=== PATIENT | female | born 1955 | race Caucasian/White ===

== ENCOUNTER 2018-12-30 07:05 | Observation (INO) ==
[2018-12-30 07:21] VITALS: BMI 30.2
[2018-12-30 07:31] LABS: BASOPHILS # (AUTO) 0.1 X10^3/uL (0.0-0.1); BASOPHILS % (AUTO) 1.2 % (0.2-1.0); EOSINOPHILS # (AUTO) 0.8 x10^3/uL (0.0-0.2); EOSINOPHILS % (AUTO) 10.2 % (0.9-2.9); HEMATOCRIT 43.4 % (36.0-47.0); HEMOGLOBIN 14.7 g/dL (12.0-16.0); LYMPHOCYTES # (AUTO) 1.8 X10^3/uL (1.3-2.9); LYMPHOCYTES % (AUTO) 24.5 % (21.0-51.0); MEAN CORPUSCULAR HEMOGLOBIN 30.3 pg (27.0-34.0); MEAN PLATELET VOLUME 9.6 fL (7.4-11.0); MONOCYTES # (AUTO) 0.5 x10^3/uL (0.3-0.8); MONOCYTES % (AUTO) 7.4 % (0.0-13.0); NEUTROPHILS # (AUTO) 4.2 x10^3/uL (2.2-4.8); NEUTROPHILS % (AUTO) 56.7 % (42.0-75.0); RED BLOOD COUNT 4.87 X10^6/uL (3.5-5.4); RED CELL DISTRIBUTION WIDTH 13.6 % (11.6-16.5)
[2018-12-30] MEDS ORDERED: DECADRON INJ ONE (07:32)
[2018-12-30] MEDS ORDERED: TORADOL 60 MG VIAL ONE (07:32)
[2018-12-30] MEDS ORDERED: XYLOCAINE 1 % (PLAIN) ONE (07:32)
[2018-12-30] MEDS ORDERED: ROCEPHIN VIAL 1 GRAM ONE (07:33)
[2018-12-30 07:35] LABS: PLATELET COUNT 144 X10^3/uL (150.0-450.0); WHITE BLOOD COUNT 7.2 X10^3/uL (3.6-10.0)
--- NOTE | 2018-12-30 07:42 | CT ---
History: Altered mental status Study: CT brain without contrast. Sagittal and coronal reformations were provided. Comparison: None Findings: The ventricles and sulci are of normal size and configuration for patient age without mass effect. There is no intracranial hemorrhage or mass or edema. There is an old right temporal parietal craniotomy with artifact from surgical clips inside the parietal bone. There is no subdural collection of fluid. The paranasal sinuses and mastoid sinuses are clear. Impression: No evidence for acute intracranial disease Reported By:
[2018-12-30 07:47] LABS: BLOOD UREA NITROGEN 18 mg/dL (7-18); CALCIUM 9.6 mg/dL (8.5-10.1); CARBON DIOXIDE 26.3 mmol/L (21-32); CHLORIDE 102 mmol/L (98-107); COR NA(FOR HYPERGLY) 139 mmol/L (136-145); CREATININE 0.85 mg/dL (0.55-1.02); SODIUM 138 mmol/L (136-145); TROPONIN I < 0.02 ng/mL (0-1.5); eGFR NON BLACK RACES > 60 (>60)
[2018-12-30 07:50] LABS: PLATELET MORPHOLOGY COMMENT NORMAL (NORMAL)
[2018-12-30 07:51] LABS: ALANINE AMINOTRANSFERASE 33 Units/L (12-78); ALBUMIN 3.7 g/dL (3.4-5.0); ALKALINE PHOSPHATASE 72 Units/L (46-116); ASPARTATE AMINO TRANSFERASE 22 Units/L (15-37); CKMB % 1.2 % (<4); CREATINE KINASE 96 Units/L (26-192); CREATINE KINASE MB 1.1 ng/mL (0-4.0); TOTAL PROTEIN 7.2 g/dL (6.4-8.2)
--- NOTE | 2018-12-30 07:56 | DR.AMS ---
HPI Time Seen Time Seen by Provider: 12/30/18 07:46 PCP Primary Care Physician: MIGUEL HPI Comment HPI Comment: PATIENT IS 63YR OLD WHITE FEMALE WOKE THIS AM AND GOT READY FOR WORK. SHE WENT TO HER DAUGHTERS HOUSE. SHE ALWAYS GO TO HER DAUGHTERS PLACE AND SEE HER BEFORE COMING TO WORK.THE DUTER OBSERVE HER MOTHER TO BE SLOW AND SLEEPY. IT WAS GETTING DIFFICULT TO KEEP HER UP. BY THE TIME SHE CAME TO ED, SHE WAS SLEEPY BUT AROUSABLE. NO FEVER. PATIENT HAVE NO. Complaint Cheif Complaint Doctors Comments: AMS. Chief Complaint:: DAUGHTER BRINGS PT. IN STATING HER MOTHER IS NOT ACTING RIGHT. SHE SAYS PT. STOPPED BY HER HOUSE THIS MORNING JUST PRIOR TO ARRIVAL AND WAS "IN SLOW MOTION." PT. ACTS VERY DROWSY AND IS SLOW TO RESPOND TO QUESTIONS AND COMMANDS BUT DOES SO APPROPIATELY. PT. DENIES PAIN. Source History Provided: Patient and Family Member Mode of Arrival Mode of Arrival: Ambulatory Timing Onset of Chief Complaint: 12/30/18 PMH PMH Past Medical History: No Past Surgical History: No Surgical History: No History Family History History of Family Medical Conditions: Yes Family Medical History: Hypertension Social History Does patient currently use any type of tobacco product: No Have you used tobacco products in the last 12 months: No Type of Tobacco Use: None Does any household member use tobacco: No Alcohol Use: None Do you use any recreational Drugs:: No Lives With: Family Lives Where: Home infectious screening In the last 2 months have you had wt loss of >10#?: NO Have you had fever, night sweats or hemotysis?: No Have you traveled outside the country in the last 6 months?: No Isolation: Standard ROS Review of Systems Constitutional: No Symptoms Reported and See HPI; negative Chills, Fever, Weakness and Fatigue Eyes: No Symptoms Reported and See HPI; negative Blurred Vision, Photophobia and Diplopia ENTM: No Symptoms Reported and See HPI; negative Ear Pain, Nose Discharge, Nose Congestion and Throat Pain Respiratoy: No Symptoms Reported and See HPI; negative Short of Breath and Wheezing Cardiovascular: No Symptoms Reported and See HPI Gastrointestinal/Abdominal: No Symptoms Reported and See HPI; negative Abdominal Pain, Constipation, Diarrhea and Nausea Genitourinary: No Symptoms Reported and See HPI; negative Dysuria, Frequency and Hematuria Neurological: No Symptoms Reported, See HPI and Headache; negative Weakness and Dizziness Musculoskeletal: No Symptoms Reported and See HPI; negative Back Pain Integumentary: No Symptoms Reported, See HPI and Rash; negative Change in Color, Dryness and Bruises Hematologic/Lymphatic: No Symptoms Reported and See HPI; negative Swollen Glands and Lymphadenopathy Endocrine: No Symptoms Reported and See HPI; negative Increased Thirst and Increased Urine Psychiatric: No Symptoms Reported and See HPI All Other Systems: Reviewed and Negative PE Vitals Vital Signs: Temp Pulse Pulse Resp BP BP Pulse Ox 12/30/18 08:00 80 22 139/65 97 12/30/18 07:32 86 17 144/70 98 12/30/18 07:18 98.1 F 85 17 143/61 98 General Limitations: Altered Mental Status General Appearance: In No Apparent Distress and Other (SLEEPY BUT AROUSABLE.) Head Head Exam: Normal Inspection, Atraumatic and Normocephalic Head Exam Physical: Other (ONE REPORTED.) Eyes Eye exam: Normal Appearance, PERRL, EOMI and Other (PTOSIS LEFT EYE.); negative Scleral Icterus and Conjunctival Injection Pupils: Regular, Round: Bilateral and Reactive: Bilateral ENT ENT Exam: Normal Oropharynx, Normal External Ear Exam, Mucous Membranes Moist and TM's Normal Bilaterally External Ear Exam: Normal External Inspection; negative Mastoid Tenderness, Pain with Movement and External Tenderness TM/Canal Exam: Bilateral: Normal Nose Exam: Normal Nose Exam; negative Sinus Tenderness, Nasal Deviation and Septal Hematoma Mouth Exam: Normal Inspection; negative Drooling, Trismus, Lip Swelling and Tongue Swelling Throat Exam: negative Tonsillar Erythema, Tonsillomegaly and Tonsillar Exudate Neck Neck Exam: Normal Inspection and Trachea Midline; negative Tenderness, Meningismus and Lymphadenopathy Chest Chest Inspection: Normal Inspection, Symmetric Chest Wall Rise and Tenderness Respiratory Respiratory Exam: Normal Lung Sounds Bilat; negative Accessory Muscle Use, Chest Wall Tenderness and Respiratory Distress Respiratory Exam: Bilateral: Clear to Auscultation Cardiovascular Cardiovascular Exam: Regular Rate, Normal Rhythm and Normal Heart Sounds; negative Systolic Murmur, Diastolic Murmur, Gallop and JVD Abdominal Exam Abdominal Exam: Normal Inspection, Normal Bowel Sounds and Soft; negative Tenderness, Organomegaly and Mass Extremities Extremities Exam: Normal Inspection and Normal Capillary Refill; negative Tenderness, Edema and Calf Tenderness Back Back Exam: negative Tenderness, Paraspinal Tenderness and Vertebral Tenderness Neurological Neurological Exam: Oriented X3, CN II-XII Intact and Reflexes Normal; negative Alert (SLEEPY) and Motor Sensory Deficit Patient Oriented To: Person, Place and Time Speech: Fluid Speech (SLOW) Cranial Nerve Exam: EOM Function (II, III, IV, ): Normal, Facial Sensation (V): Normal, Facial Palsy (VII): Normal, Gag reflex (XI): Normal, Spinal Accessory Function (XI): Normal and Tongue Deviation: Normal Cerebellar Function: Ataxic Gait (SLIGHT ATAXIA ON ARRIVAL.) Motor Strength - LUE: 5/5 Motor Strength - RUE: 5/5 Motor Strength - LLE: 5/5 Motor Strength - RLE: 5/5 Upper Motor Neuron Exam: Babinski Sign: Normal Psychological Psychiatric Exam: Normal Affect and Normal Mood Skin Skin Exam: Warm, Dry, Intact and Normal Color MDM Additional Information Obtained Additional Information Obtained From: Family Differential Diagnosis Metabolic: Dehydration, Hypercalcemia and Hypoglycemia Structural: CVA and Mass Lesion Infectious: UTI COURSE Treatment Treatment: SEE ORDERS. PATIENT GRADUALLY BECOMMING MORE ALERT. Education/Counseling Education/Counseling: Patient and Family Educated On: Diagnosis ROR Labs Reviewed Laboratory Results Reviewed?: Yes Result Diagrams: 12/30/18 07:23 12/30/18 07:23 Laboratory: WBC 7.2 X10^3/uL (3.6-10.0) 12/30/18 07:23 RBC 4.87 X10^6/uL (3.5-5.4) 12/30/18 07:23 Hgb 14.7 g/dL (12.0-16.0) 12/30/18 07:23 Hct 43.4 % (36.0-47.0) 12/30/18 07:23 MCV 89.0 fL (80.0-100.0) 12/30/18 07:23 MCH 30.3 pg (27.0-34.0) 12/30/18 07:23 MCHC 34.0 g/dL (33.0-35.0) 12/30/18 07: RDW 13.6 % (11.6-16.5) 12/30/18 07:23 Plt Count 144 X10^3/uL (150.0-450.0) L 12/30/18 07:23 Plt Count Comment Adequate (ADEQUATE) 12/30/18 07:23 MPV 9.6 fL (7.4-11.0) 12/30/18 07:23 Neut % (Auto) 56.7 % (42.0-75.0) 12/30/18 07:23 Lymph % (Auto) 24.5 % (21.0-51.0) 12/30/18 07:23 Coal % (Auto) 7.4 % (0.0-13.0) 12/30/18 07:23 Eos % (Auto) 10.2 % (0.9-2.9) H 12/30/18 07:23 Baso % (Auto) 1.2 % (0.2-1.0) H 12/30/18 07:23 Neut # (Auto) 4.2 x10^3/uL (2.2-4.8) 12/30/18 07:23 Lymph # (Auto) 1.8 X10^3/uL (1.3-2.9) 12/30/18 07:23 Coal # (Auto) 0.5 x10^3/uL (0.3-0.8) 12/30/18 07:23 Eos # (Auto) 0.8 x10^3/uL (0.0-0.2) H 12/30/18 07:23 Baso # (Auto) 0.1 X10^3/uL (0.0-0.1) 12/30/18 07:23 Absolute Nucleated RBC 0.1 /100WBC 12/30/18 07:23 Plt Clumps, EDTA Few 12/30/18 07:23 Plt Morphology Comment Normal (NORMAL) 12/30/18 07:23 RBC Morphology Normal (NORMAL) 12/30/18 07:23 INR Target Range - 12/30/18 07:23 INR 0.97 (0.8-1.3) 12/30/18 07:23 APTT 20.2 SECONDS (22.9-36.5) L 12/30/18 07:23 PTT Comment - 12/30/18 07:23 Sodium 138 mmol/L (136-145) 12/30/18 07:23 Corrected Sodium 139 mmol/L (136-145) 12/30/18 07:23 Potassium 4.2 mmol/L (3.5-5.1) 12/30/18 07:23 Chloride 102 mmol/L (98-107) 12/30/18 07:23 Carbon Dioxide 26.3 mmol/L (21-32) 12/30/18 07:23 BUN 18 mg/dL (7-18) 12/30/18 07:23 Creatinine 0.85 mg/dL (0.55-1.02) 12/30/18 07:23 Est GFR (MDRD) Af Amer > 60 (>60) 12/30/18 07:23 Est GFR (MDRD) Non-Af > 60 (>60) 12/30/18 07:23 Glucose 148 mg/dL (65-99) H 12/30/18 07:23 Calcium 9.6 mg/dL (8.5-10.1) 12/30/18 07:23 Corrected Calcium TNP 12/30/18 07:23 Total Bilirubin 0.40 mg/dL (0.2-1.0) 12/30/18 07:23 AST 22 Units/L (15-37) 12/30/18 07:23 ALT 33 Units/L (12-78) 12/30/18 07:23 Alkaline Phosphatase 72 Units/L (46-116) 12/30/18 07:23 Creatine Kinase 96 Units/L (26-192) 12/30/18 07:23 CK-MB (CK-2) 1.1 ng/mL (0-4.0) 12/30/18 07:23 CK/CKMB % Calc 1.2 % (<4) 12/30/18 07:23 Troponin I < 0.02 ng/mL (0-1.5) 12/30/18 07:23 Total Protein 7.2 g/dL (6.4-8.2) 12/30/18 07:23 Albumin 3.7 g/dL (3.4-5.0) 12/30/18 07:23 Globulin 3.5 g/dL (2.5-4.5) 12/30/18 07:23 Albumin/Globulin Ratio 1.1 Ratio (1.1-2.1) 12/30/18 07:23 Specimen Type Clean catch urine 12/30/18 07:50 Urine Color Straw (YELLOW) 12/30/18 07:50 Urine Appearance Clear (CLEAR) 12/30/18 07:50 Urine pH 6.0 (5.0 - 8.0) 12/30/18 07:50 Ur Specific Lewis 1.005 (1.000-1.030) 12/30/18 07:50 Urine Protein Negative (NEGATIVE) 12/30/18 07:50 Urine Glucose (UA) Negative (NEGATIVE) 12/30/18 07:50 Urine Ketones Negative (NEGATIVE) 12/30/18 07:50 Urine Occult Blood Negative (NEGATIVE) 12/30/18 07:50 Urine Nitrite Negative (NEGATIVE) 12/30/18 07:50 Urine Bilirubin Negative (NEGATIVE) 12/30/18 07:50 Urine Urobilinogen Normal (NORMAL) 12/30/18 07:50 Ur Leukocyte Esterase 1+ (NEGATIVE) 12/30/18 07:50 Urine RBC None seen /HPF (NONE SEEN) 12/30/18 07:50 Urine WBC 0-2 /HPF (NONE SEEN) 12/30/18 07:50 Ur Squamous Epith Cells Few /HPF (NEGATIVE) 12/30/18 07:50 Urine Bacteria Trace /HPF (NEGATIVE) 12/30/18 07:50 Ur Culture Indicated? No/not indicated 12/30/18 07:50 XRAY XRAY Interpreted by: Radiologist XRAY Findings: REPORT ON THIS RECORD NOTED AND DISCUSS WITH PATIENT. EKG Rate: 85 [place]: Normal Rhythm: NSR Block: None Hypertrophy: None ST: Normal Opioid Opioid Risk Tool Age (Henry box if 16-45): No Total: 0 Total Score Risk Category: Low Risk Copyright: Joshua DESIR predicting aberrant behaviors Management Prescription drug monitoring program results: PDMP was not reviewed
[2018-12-30 08:03] LABS: BILIRUBIN,URINE NEGATIVE (NEGATIVE); BLOOD/HEMOGLOBIN,URINE NEGATIVE (NEGATIVE); GLUCOSE, URINE NEGATIVE (NEGATIVE); KETONES,URINE NEGATIVE (NEGATIVE); LEUKOCYTE ESTERASE ,URINE 1+ (NEGATIVE); NITRITES,URINE NEGATIVE (NEGATIVE); PROTEIN,URINE NEGATIVE (NEGATIVE); UROBILINOGEN,URINE NORMAL (NORMAL)
[2018-12-30 08:04] LABS: APPEARANCE,URINE CLEAR (CLEAR); COLOR,URINE STRAW (YELLOW)
[2018-12-30 08:10] LABS: BACTERIA,URINE TRACE /HPF (NEGATIVE); RBC,URINE NONE SEEN /HPF (NONE SEEN); SQUAMOUS EPITHELIAL CELL,UR FEW /HPF (NEGATIVE)
[2018-12-30 13:45] LABS: CKMB % 1.3 % (<4); CREATINE KINASE 76 Units/L (26-192); TROPONIN I < 0.02 ng/mL (0-1.5)
[2018-12-30] MEDS ORDERED: RESTORIL CAP 15 MG PO PRN (17:37)
[2018-12-30 19:56] LABS: CKMB % 1.4 % (<4); CREATINE KINASE 72 Units/L (26-192); TROPONIN I < 0.02 ng/mL (0-1.5)
[2018-12-31 05:27] LABS: BASOPHILS # (AUTO) 0.1 X10^3/uL (0.0-0.1); BASOPHILS % (AUTO) 1.4 % (0.2-1.0); EOSINOPHILS # (AUTO) 0.8 x10^3/uL (0.0-0.2); EOSINOPHILS % (AUTO) 11.8 % (0.9-2.9); HEMATOCRIT 42.5 % (36.0-47.0); HEMOGLOBIN 14.4 g/dL (12.0-16.0); LYMPHOCYTES # (AUTO) 1.9 X10^3/uL (1.3-2.9); LYMPHOCYTES % (AUTO) 28.5 % (21.0-51.0); MEAN CORPUSCULAR HEMOGLOBIN 30.7 pg (27.0-34.0); MEAN CORPUSCULAR HGB CONC 33.9 g/dL (33.0-35.0); MEAN CORPUSCULAR VOLUME 90.5 fL (80.0-100.0); MONOCYTES # (AUTO) 0.5 x10^3/uL (0.3-0.8); MONOCYTES % (AUTO) 7.4 % (0.0-13.0); NEUTROPHILS # (AUTO) 3.4 x10^3/uL (2.2-4.8); NEUTROPHILS % (AUTO) 50.9 % (42.0-75.0); PLATELET COUNT 185 X10^3/uL (150.0-450.0); RED CELL DISTRIBUTION WIDTH 13.5 % (11.6-16.5); WHITE BLOOD COUNT 6.7 X10^3/uL (3.6-10.0)
[2018-12-31 05:43] LABS: ALANINE AMINOTRANSFERASE 31 Units/L (12-78); ALBUMIN 3.1 g/dL (3.4-5.0); ALKALINE PHOSPHATASE 64 Units/L (46-116); ASPARTATE AMINO TRANSFERASE 19 Units/L (15-37); BLOOD UREA NITROGEN 18 mg/dL (7-18); CALCIUM 9.1 mg/dL (8.5-10.1); CARBON DIOXIDE 29.1 mmol/L (21-32); CHLORIDE 105 mmol/L (98-107); CHOL/HDL RATIO 5.3 (0.0-5.0); CHOLESTEROL 251 mg/dL (0-200); COR CA(FOR HYPOALB) 9.8 mg/dL (8.5-10.1); COR NA(FOR HYPERGLY) 142 mmol/L (136-145); CREATININE 0.82 mg/dL (0.55-1.02); HDL CHOLESTEROL 47 mg/dL (40-60); SODIUM 142 mmol/L (136-145); TOTAL PROTEIN 6.7 g/dL (6.4-8.2); TRIGLYCERIDES 183 mg/dL (0-150); eGFR NON BLACK RACES > 60 (>60)
[2018-12-31 10:22] VITALS: BP 129/59
--- NOTE | 2019-01-10 22:01 | DR.CARTERS ---
Short Stay Summary - Admission Date Date of Admission: 12/30/18 - Discharge Date Discharge Date: 12/31/18 - Admission Diagnoses (1) TIA (transient ischemic attack) Status: Acute - Hospital Course Hospital Course: IS A 63 YEAR OLD WHITE FEMALE WHO PRESENTED TO THE ER WITH COMPLAINTS OF ALTERED MENTAL STATUS, WEAKNESS, AND DROWSINESS. PATIENTS DAUGHTER REPORTED THAT PATIENT DROVE TO HER HOUSE AND THAT SHE WAS HAVING DIFFICULTY KEEPING HER MOTHER AWAKE. PATIENT HAS NO KNOWN MEDICAL HISTORY. ON ARRIVAL TO THE ER, VITALS WERE98.1-85-17-98%-143/61. LABS WERE OBTAINED. ABNORMAL LAB VALUES INCLUDED THE FOLLOWING: PLT COUNT 144, PTT 20.2, FIBRINOGEN 193, GLUCOSE 148, CARDIAC ENZYMES WITHIN NORMAL LIMITS. URINALYSIS UNREMARKABLE. A BRAIN CT WAS OBTAINED AND REVEALED: No evidence for acute intracranial disease. EKG REVEALED: SINUS RHYTHM WITH HR 95. WE ATTEMPTED OT OBTAIN A MRI, HOWEVER, PATIENT WAS UNABLE TO STAY STILL FOR THE TEST. SHE WAS ADMITTED FOR FURTHER EVALUATION AND TREATMENT OF TIA RULE OUT CVA. WE PLANNED TO FOLLOW UP WITH AM LABS AND CONTINUE TO MONITOR. ON THE MONRING FOLLOWING ADMISSION, PATIENT IS ALERT AND ORIENTED, SITTING UP IN BED ON MORNING ROUNDS. SHE REPORTS FEELING WELL AND DENIES WEAKNESS OR CONFUSION. ON EXAMINATION, HEART IS REGULAR IN RATE AND RHYTHM. BILATERAL LUNGS ARE NOTED WITH DIMINISHED LUNG SOUNDS THROUGHOUT. ABDOMEN IS ROUND, SOFT, AND NON-TENDER WITH NORMAL BOWEL SOUNDS NOTED IN ALL QUADRANTS. HER VITALS THIS MORNING ARE: 98.1-69-19-96%-122/63. ABNORMAL LAB VALUES INCLUDE THE FOLLOWING: GLUCOSE 117, ALBUMIN 3.1, TRIGLYCERIDES 183, CHOLESTEROL 251, LDL 167. CARDIAC ENZYMES HAVE BEEN WITHIN NORMAL LIMITS. NO CHANGES NOTED TO EKGs. WE PLANNED FOR DISCHARGE. WE WILL DO A FURTHER CARDIAC WORK-UP IN THE OFFICE. INSTRUCTIONS FOR MEDICATIONS AND FOLLOW-UP WERE DISCUSSED WITH PATIENT AND FAMILY. THEY VERBALIZED UNDERSTANDING OF ORDERS. PATIENT WAS DISCHARGED HOME WITH NEW PRESCRIPTIONS FOR ASPIRIN 325MG PO DAILY, PEPCID 20MG PO BID, SYNTHROID 50MCG PO DAILY, AND ROSUVASTATIN 10MG PO HS. SHE WAS GIVEN INSTRUCTIONS FOR A hiyalife DIET DUE TO INCREASED BLOOD GLUCOSE LEVELS. SHE WAS DISCHARGED HOME IN STABLE CONDITION. - Discharge Medications Discharge Medications: Home Medication List NK 12/30/18 [History] aspirin [Ecotrin] 325 mg PO QDAY #30 tab 12/31/18 [Rx] famotidine [Pepcid] 20 mg PO BID #60 tab 12/31/18 [Rx] levothyroxine [Synthroid] 50 mcg PO QDAY #30 tab 12/31/18 [Rx] rosuvastatin [Crestor] 10 mg PO HS #30 tab 12/31/18 [Rx] Prescriptions: aspirin [Ecotrin] Víctor Montoya famotidine [Pepcid] Víctor Montoya levothyroxine [Synthroid] Víctor Montoya rosuvastatin [Crestor] Víctor Montoya Risks, benefits, and alternatives of opioids discussed: No Prescription drug monitoring program results: PDMP reviewed and no concerns identified - Discharge Plan Disposition: 01 HOME, SELF-CARE Condition: Stable Prescriptions: aspirin [Ecotrin] 325 mg PO QDAY #30 tab famotidine [Pepcid] 20 mg PO BID #60 tab levothyroxine [Synthroid] 50 mcg PO QDAY #30 tab rosuvastatin [Crestor] 10 mg PO HS #30 tab - Follow up/Referrals Follow up/Referrals: Víctor Montoya [Primary Care Provider] - 01/13/19 - Instructions Instructions: Transient Ischemic Attack, [id number] Additional Instructions: DIET TOLERATED. ACTIVITY TOLERATED. CALL THE OFFICE TO SCHEDULE A FOLLOW UP APPOINTMENT STRICT [employer] DIET Forms: Excuse From Work or School, Excuse From Work
== END 2018-12-31 10:20 | disposition home or self-care (01) ==
LOC: ICU 07:05 → ER 07:05 → ICU 10:07
PROVIDERS: ADMIT Internal Medicine; ATTEND Internal Medicine
DX: R53.1 Weakness; R41.82 Altered mental status, unspecified; R94.31 Abnormal electrocardiogram [ECG] [EKG]; G45.8 Other transient cerebral ischemic attacks and related syndromes
CPT/HCPCS: 36415; 70450; 80053; 80061; 81001; 82550; 82553; 84484; 85025; 85384; 85610; 85730; 93005; 96365; 99284; A4216; A4222; G0378; J0696; J1100; J1885